=== PATIENT | male | born 1940 | race Caucasian/White ===

== ENCOUNTER 2017-04-10 09:26 | Outpatient (CLI) | payer MEDICARE ==
[~2017-04-10] VITALS: Ht 177.8 cm; Wt 118.2 kg
--- NOTE | ~2017-04-10 | OP ---
PATIENT NAME: LONNY SILVA MEDICAL RECORD: [id number] :42 LOCATION:D.CAT ADMISSION DATE: SURGEON: FRANCISCO SMITH MD DATE OF OPERATION: 04/10/2017 PROCEDURES: 1. Left heart catheterization. 2. Selective coronary angiography. 3. Left ventriculogram. 4. Attempted but failed PTCA stent of the left circumflex chronic total occlusion, inability to cross with wire. PROCEDURE IN DETAIL: After informed consent was obtained and after detailed explanation of risks, benefits as well as alternative therapies, the patient elected to proceed with angiogram and angioplasty. The right radial area is prepped and draped in normal sterile fashion. The right radial artery was cannulated via modified Seldinger technique with placement of 6-Togolese sheath. All catheters exchanged through this sheath. FINDINGS: The left ventriculogram was performed in standard 30-degree OCHOA view, reveals preserved cardiac wall motion, ejection fraction 50%. SELECTIVE CORONARY ANGIOGRAPHY: 1. Left main showed no significant angiographic disease. 2. Left anterior descending has mild irregularities, but no flow-limiting stenosis. 3. Left circumflex has previously placed stents in the second obtuse marginal area. These are chronically totally occluded. The first obtuse marginal was widely patent. 4. Right coronary has mild irregularities, but no flow-limiting stenosis. PTCA STENT OF THE LEFT CIRCUMFLEX: We attempted to cross the total occlusion of the previously placed stents, but no wire or balloon would cross this. 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 No disease elsewise. Continue medical management of the coronary artery disease and cardiac risk factors. TRANSINT:[id number] Voice Confirmation ID: [id number] DOCUMENT ID: [id number] FRANCISCO SMITH MD CC: [id number] DICTATION DATE: 04/10/17 1435 DIRECTOR OF MARKETING: 04/10/17 1754 DEP CLI 04/10/17 [address] [place] [address]
--- NOTE | ~2017-04-10 | HEMODYNAMI ---
PATIENT:LONNY SILVA MEDICAL RECORD: [id number] : 42 LOCATION:[facility] ADMISSION DATE: 04/10/17 Generatedon:04/10/201714:37 Patient name: LONNY SILVA Patient #: [id number] SSN: : 1940 Date of study: 04/10/2017 Page: Of Hemodynamic Procedure Report Patient Data Patient Demographics Procedure consent was obtained First Name: LONNY Gender: Male Last Name: SHIRA : 1940 [facility] Initial: JEANETH Age: 76 year(s) Patient #: [id number] Race: Unknown Additional ID: [id number] Contact details [address]: [address] [place] [address] State: [place] City: [place] Zip code: [address] Past Medical History Allergies: No known allergies Admission Admission Data Admission Date: 04/10/2017 Admission Time: 9:26 Lab Results Lab Result Date: 04/10/2017 Lab Result Time: 0:00 Biochemistry Name Units Result Min Max Creatinine mg/dl 1.6 --(----)-* 0.6 1.3 CBC Name Units Result Min Max Hemoglobin g/dl 13.6 --(*---)-- 13.5 17.5 Procedure Procedure Types Cath Procedure Diagnostic Procedure C [facility] w/Coronaries Miscellaneous Procedures Moderate Sedation up to 45 minutes Procedure Description Procedure Date Procedure Date: 04/10/2017 Procedure Start Time: 14:06 Procedure End Time: 14:36 Procedure Staff Name Function Salvador Parker MD Performing Physician Kairna Cervantes RT Scrub Zia Velez RN Nurse Vanessa Roque RT Monitor Procedure Data Cath Procedure Fluoroscopy Diagnostic fluoroscopy Total fluoroscopy Time: time: 13.1 min 13.1 min Diagnostic fluoroscopy Total fluoroscopy dose: dose: 2291 mGy 2291 mGy Contrast Material Contrast Material Type Amount (ml) Isovue 300 204 Entry Location Entry Primary Successful Side Size Upsize Upsize Entry Closure Riojas ccessful Closure Location (Fr) 1 (Fr) 2 (Fr) Remarks Device Remarks Radial Right 6 Fr Mechanical artery Short Compression Estimated blood loss: 10 ml Diagnostic catheters Device Type Used For End Catheter Placement Diagnostic Terumo 5Fr LV Angiography [place] 110cm catheter Diagnostic Terumo 5Fr Left Coronary [place] 110cm catheter Angiography Diagnostic Infinity 5Fr Right Coronary AR 2 MOD catheter Angiography Procedure Complications No complications Procedure Medications Medication Administration Route Dosage Oxygen NC 2 l/min Lidocaine 2% added to field 20 Heparin Flush Bag added to field 2 bags (1000units/500ml NS) 0.9% NaCl I.V. 100 ml/hr Versed I.V. 1 mg Fentanyl I.V. 50 mcg Versed I.V. 1 mg Fentanyl I.V. 50 mcg Fentanyl I.V. 50 mcg Radial Cocktail I.A. 1 syringe (Verapomil 2mg/Nitro 400mcg/Heparin 1500units) Fentanyl I.V. 50 mcg Heparin Bolus I.V. 5000 units Hemodynamics Rest HGB: 13.6 (g/dl) Heart Rate: 68 (bpm) Pressure Samples Time Site Value (mmHg) Purpose Heart Use Rate(bpm) 14:12 LV 111/38,55 Snapshot 84 Snapshots Pre Cath Intra NCS Post Cath Vital Signs Time Heart Resp SPO2 NIBP (mmHg) Rhythm Pain Sedation Rate (ipm) (%) Status Level (bpm) 13:14:21 70 15 99 130/75(108) NSR 0 (11) 10(A) , No pain 13:18:35 62 14 99 131/75(106) NSR 0 (11) 10(A) , No pain 13:22:51 81 14 98 128/72(110) NSR 0 (11) 10(A) , No pain 13:26:57 68 16 96 117/80(112) NSR 0 (11) 10(A) , No pain 13:31:07 65 17 95 137/74(115) NSR 0 (11) 10(A) , No pain 13:35:12 63 14 97 114/83(106) NSR 0 (11) 10(A) , No pain 13:40:22 63 16 98 106/71(90) NSR 0 (11) 10(A) , No pain 13:45:11 64 17 95 116/69(108) NSR 0 (11) 10(A) , No pain 13:49:20 65 18 96 114/72(97) NSR 0 (11) 10(A) , No pain 13:53:26 65 18 97 126/80(100) NSR 0 (11) 10(A) , No pain 13:57:38 65 16 97 123/79(105) NSR 0 (11) 10(A) , No pain 14:01:50 65 16 95 130/75(107) NSR 0 (11) 10(A) , No pain 14:05:58 66 14 97 102/74(93) NSR 0 (11) 9(A) , No pain 14:09:54 74 17 93 114/95(109) NSR 0 (11) 9(A) , No pain 14:14:53 71 16 95 106/72(99) NSR 0 (11) 9(A) , No pain 14:20:47 65 16 97 117/66(95) NSR 0 (11) 9(A) , No pain 14:24:59 61 19 94 124/65(100) NSR 0 (11) 10(A) , No pain 14:29:13 54 18 96 130/68(100) NSR 0 (11) 10(A) , No pain 14:33:29 60 16 96 125/73(99) NSR 0 (11) 10(A) , No pain Medications Time Medication Route Dose Verified Delivered Reason Note s Effectiveness by by 13:12:52 Oxygen NC 2 l/min Salvador Buffie used for Elena Velez RN procedure 13:12:59 Lidocaine 2% added 20ml Salvador Salvador for local to vial Elena Parker MD anesthetic field 13:13:04 Heparin Flush added 2 bags Salvadorashley Franco used for Bag to Elena Parker MD procedure (1000units/500ml field NS) 13:13:12 0.9% NaCl I.V. 100 Salvador Buffie Per physician ml/hr Elena Velez RN 13:55:31 Versed I.V. 1 mg Salvador Buffie for sedation Elena Velez RN 13:55:37 Fentanyl I.V. 50 mcg Salvador Buffie for sedation Elena Velez RN 14:02:23 Versed I.V. 1 mg Salvador Buffie for sedation Elena Velez RN 14:02:27 Fentanyl I.V. 50 mcg Salvador Lizarraga for sedation Elena Velez RN 14:07:00 Fentanyl I.V. 50 mcg Salvador Lizarraga for sedation Elena Velez RN 14:08:49 Radial Cocktail I.A. 1 Salvador kam (Verapomil syringe Elena Parker MD vasodilation 2mg/Nitro 400mcg/Heparin 1500units) 14:13:03 Fentanyl I.V. 50 mcg Salvador Lizarraga for sedation Elena Velez RN 14:21:40 Heparin Bolus I.V. 5000 Salvador Lizarraga for veri fied units Elena Velez RN anticoagulation with dr parker Procedure Log Time Note 13:02:27 Karina Billy RT(R) sent for patient. Start room use. 13:02:28 Time tracking: Regular hours 13:02:32 Plan of Care:Hemodynamics will remain stable., Cardiac rhythm will remain stable., Comfort level will be maintained., Respiratory function will remain adequate., Patient/ family verbilizes understanding of procedure., Procedure tolerated without complication., Recovers from procedure without complications.. 13:05:04 Patient received from Pre/Post Procedure Room to CCL 2 Alert and oriented. Tansferred to table in Supine position. 13:05:05 Warm blankets applied, and tien hugger turned on for patient comfort. 13:05:06 Correct patient and procedure confirmed by team. 13:05:07 Signed procedure consent form obtained from patient. 13:05:07 ECG and BP/O2 sat monitors applied to patient. 13:05:08 Full Disclosure recording started 13:12:52 Oxygen 2 l/min NC was administered by Zia Velez RN; used for procedure; 13:12:59 Lidocaine 2% 20ml vial added to field was administered by Salvador Parker MD; for local anesthetic; 13:13:04 Heparin Flush Bag (1000units/500ml NS) 2 bags added to field was administered by Salvador Parker MD; used for procedure; 13:13:12 0.9% NaCl 100 ml/hr I.V. was administered by Zia Velez RN; Per physician; 13:13:17 Vital chart was started 13:13:22 Rhythm: sinus bradycardia 13:17:29 Baseline sample Acquired. 13:17:49 H&P Date Dictated: 03/11/2017 Within 30 days and on chart., H&P Addendum completed by physician on day of procedure. (MUST COMPLETE FOR ALL OUTPATIENTS). 13:17:50 Pre-procedure instructions explained to patient. 13:17:50 Pre-op teaching completed and patient verbalized understanding. 13:17:52 Family in patients room. 13:17:53 Patient NPO since Midnight. 13:18:02 Patient allergic to No known allergies 13:18:05 Is the patient allergic to Iodine/contrast media? No. 13:18:07 Is patient on blood thinner?Yes 13:18:09 ACC The patient was administered the following blood thiners within the last 24 hours: ACCPlavix 13:18:11 Patient diabetic? Yes. 13:18:11 If diabetic: On Metformin? Yes 13:18:13 If on Metformin: Last Dose? 04/09/2017 13:18:17 Previous problem with sedation/anesthesia? No ? 13:18:17 Snore? Yes 13:18:18 Sleep apnea? No 13:18:19 Deviated septum? No 13:18:20 Opens mouth fully? Yes 13:18:20 Sticks out tongue? Yes 13:18:23 Airway obstruction? No ? 13:18:27 Dentures? Yes In 13:18:29 Pre procedure: right dorsailis pedis pulse 2+ Normal; easily identifiable; not easily obliterated 13:18:32 Modified Pérez's test Ulnar < 7 seconds 13:18:34 Patient pain scale 0/10 ?. 13:18:38 IV patent on arrival in left hand with 0.9% NaCl at KVO. 13:18:41 Lab results completed and on chart. 13:19:00 Lab Result : Creatinine 1.6 mg/dl 13:19:00 Lab Result : Hemoglobin 13.6 g/dl 13:19:07 Right Radial & Right Groin area was prepped with chlora-prep and draped in sterile fashion 13:19:08 Alarms reviewed by R. N. 13:19:08 Sharps counted by scrub and verified by R.N. 13:19:11 Use device set Radial Dx 13:19:12 Acist Syringe opened to sterile field. 13:19:13 Medline Cath Pack opened to sterile field. 13:19:13 Bag Decanter opened to sterile field. 13:19:16 Terumo 6Fr Slender Glidesheath opened to sterile field. 13:19:17 St Nilo 260cm J .035 wire opened to sterile field. 13:19:18 Acist Hand Control opened to sterile field. 13:19:18 Acist Manifold opened to sterile field. 13:19:19 Tegaderm 4 x 4 opened to sterile field. 13:19:19 MBrace Wrist Support opened to sterile field. 13:23:40 Zero performed for pressure channel P1 13:23:44 Zero performed for pressure channel P1 13:54:37 Final Timeout: patient, procedure, and site verified with staff and physician. All members of the team are in agreement. 13:54:39 Right Radial site verified by team. 13:54:43 Physical assessment completed. ASA score P 2 - A patient with mild systemic disease as per Salvador Parker MD. 13:54:48 Sedation plan: IV Moderate Sedation Versed, Fentanyl 13:55:31 Versed 1 mg I.V. was administered by Zia Velez RN; for sedation; 13:55:37 Fentanyl 50 mcg I.V. was administered by Zia Velez RN; for sedation; 14:02:23 Versed 1 mg I.V. was administered by Zia Velez RN; for sedation; 14:02:27 Fentanyl 50 mcg I.V. was administered by Zia Velez RN; for sedation; 14:06:49 Procedure started. 14:06:55 Local anesthetic to right radial artery with Lidocaine 2% by Salvador Parker MD.INITIAL ACCESS ONLY 14:07:00 Fentanyl 50 mcg I.V. was administered by Zia Velez RN; for sedation; 14:07:17 A 6 Fr Short sheath was inserted into the Right Radial artery 14:08:04 A Diagnostic Terumo 5Fr [place] 110cm catheter was advanced over the wire and used for LV Angiography. 14:08:49 Radial Cocktail (Verapomil 2mg/Nitro 400mcg/Heparin 1500units) 1 syringe I.A. was administered by Salvador Parker MD; for vasodilation; 14:09:46 LV gram done using OCHOA 14:10:02 Injector settings: Ml/sec: 5, Volume: 15, 14:12:15 EF : 50 % 14:12:24 A Diagnostic Terumo 5Fr [place] 110cm catheter was advanced over the wire and used for Left Coronary Angiography. 14:13:03 Fentanyl 50 mcg I.V. was administered by Zia Velez RN; for sedation; 14:13:20 [employer] BasixCompak Inflation Kit opened to sterile field. 14:13:21 William Whisper J 300cm 0.014 guide wire opened to sterile field. 14:13:46 Catheter removed. 14:13:51 A Diagnostic Infinity 5Fr AR 2 MOD catheter was advanced over the wire and used for Right Coronary Angiography. removed, unable to cannulate. 14:17:37 Medtronic Launcher 6Fr AR 1.0 guide catheter opened to sterile field. 14:17:44 6 Fr AR 1.0 guide catheter was inserted over the wire 14:18:47 RCA angiography performed. 14:18:53 Guide catheter removed. 14:21:13 Medtronic Launcher 6Fr EBU 4.0 guide catheter opened to sterile field. 14:21:28 6 Fr EBU 4.0 guide catheter was inserted over the wire 14:21:40 Heparin Bolus 5000 units I.V. was administered by Zia Velez RN; for anticoagulation; verified with dr parker 14:22:54 [place] Sci Choice PT Extra Support J 300cm .014 gu opened to sterile field. 14:24:10 Choice PT ES wire advanced. 14:27:26 Wire removed. damaged. 14:32:06 The [place] Sci Rich 1.5 X 20 balloon was advanced and then removed because of failure to cross lesion 14:32:17 Wire removed. unable to cross lesion. 14:32:33 Guide catheter removed. 14:32:47 Sheath removed intact; hemostasis achieved with Mechanical Compression to the Right Radial artery. 14:32:48 Procedure ended.(Physican Out) 14:32:59 Fluoroscopy time 13.10 minutes. 14:33:04 Fluoroscopy dose: 2291 mGy 14:33:04 Flurop Dose total: 2291 14:33:07 Contrast amount:Isovue 300 204ml. 14:33:08 Sharps counted by scrub and verified by R.N. 14:33:10 TR band inflated with 12cc of air. 14:33:12 Insertion/operative site no bleeding no hematoma. 14:33:19 Post right radial artery:stable, clean and dry 14:33:21 Post Procedure Pulses reassessed and unchanged 14:33:23 Post-procedure physical assessment completed. ASA score P 2 - A patient with mild systemic disease as per Salvador Parker MD. 14:33:25 Post procedure rhythm: unchanged. 14:33:28 Estimated blood loss: 10 ml 14:33:29 Post procedure instruction explained to patient.Patient verbalizes understanding. 14:33:29 Patient needs reinforcement of post procedure teaching. 14:34:36 Procedure type changed to Cath procedure, Diagnostic procedure, LHC, LHC w/Coronaries, Miscellaneous Procedures, Moderate Sedation up to 45 minutes 14:34:41 Procedure Complication : No complications 14:34:44 See physician's report for complete and final results. 14:35:37 Terumo TR Band Standard opened to sterile field. 14:36:08 [place] Sci Choice PT Extra Support J 300cm .014 gu opened to sterile field. 14:36:44 Procedure and supply charges have been captured, reviewed, submitted and are correct. 14:36:44 Vital chart was stopped 14:36:47 Report given to Pre/Post Procedure Room. 14:36:49 Patient transfered to Pre/Post Procedure Room with Stretcher. 14:36:58 Procedure ended. 14:36:58 Full Disclosure recording stopped 14:37:02 End room use (Document Last) Intervention Summary Intervention Notes Time ActionType Lesion and Equipment Action# Pressure Duration Attributes Used 14:32:06 Discard [place] Balloon Sci Rich 1.5 X 20 balloon Device Usage Item Name Manufacture Quantity Catalog Number Hospital Part Current Mini mal Lot# / Charge Number Stock Stock Serial# Code Acist Acist 1 24532 [id number] 148136 922279 20 Syringe Medical Systems Inc Medline Cardinal 1 [id number] 408629 65362 193443 5 Cath Pack Health Bag Microtek 1 2001S 804024 82880 181730 5 Decanter Medical Inc. Terumo 6Fr Terumo 1 [id number] 163775 068906 688614 [address] St Nilo 1 626878 545824 081881 778791 30 260cm J .035 wire Acist Hand Acist 1 74479 408027 171202 120582 5 Control Medical Systems Inc Acist Acist 1 04939 363272 583282 692396 5 Manifold Medical Systems Inc Tegaderm 4 3M 1 1626W 971256 848438 024049 5 x 4 MBrace Advanced 1 140-0250-00 079040 12901 018708 5 Wrist Vascular Support Dynamics Diagnostic Terumo 1 13-7378 666475 484671 745857 5 Terumo 5Fr [place] 110cm catheter Merit Merit 1 [id number] 953147 240956 210679 15 BasixCompak Medical Inflation Kit William William 1 [id number] 624746 520895 528499 5 Whisper J Vascular 300cm 0.014 guide wire Diagnostic Cardinal 1 [id number] 468158 495709 638035 20 [employer] 5Fr AR 2 MOD catheter Medtronic Medtronic 1 [id number] 903419 95028 649444 1 Launcher 6Fr AR 1.0 guide catheter Medtronic Medtronic 1 [id number] 096951 72440 333420 1 Launcher 6Fr EBU 4.0 guide catheter [place] Sci [place] 2 [id number] 022742 425516 226050 5 Choice PT Scientific Extra Support J 300cm .014 gu [place] Sci [place] 1 [id number] 016210 435453 338879 1 [id number] Femasys Scientific 1.5 X 20 balloon Terumo TR Terumo 1 [id number] 293038 746792 875470 40 Band Standard Signature Audit [place] Stage Time Signature Unsigned Intra-Procedure 04/10/2017 Vanessa 2:37:42 PM Counts RT(R) Signatures Monitor : Vanessa Signature : Counts RT Date : Time : [place] [facility] [address] [place] [address]
[~2017-04-10 09:26] MED LIST: APRESOLINE25 MG PO; BAYER CHEWABLE81 MG PO; BENICAR40 MG PO; LOPRESSOR50 MG PO; NORVASC10 MG PO; PLAVIX75 MG PO; ZOCOR20 MG PO
[2017-04-10] MEDS ORDERED: LIPITOR40 MG PO (10:21)
[2017-04-10] MEDS ORDERED: HCTZ25 MG PO (10:22)
[2017-04-10] MEDS ORDERED: COZAAR100 MG PO (10:23)
[2017-04-10 10:25] VITALS: BP 141/79; Ht 177.8 cm; Wt 118.2 kg
[2017-04-10 10:58] LABS: BASOPHILS 0.2 % (0-2); HEMATOCRIT 40.4 % (42.0-54.0); HEMOGLOBIN 13.6 g/dL (13.5-17.5); IMMATURE GRANULOCYTES 0.2 % (0-5); LYMPHOCYTES 24.9 % (15-50); MCH 29.7 pg (26.0-34.0); MCHC 33.7 g/dL (31.0-37.0); MCV 88.2 fL (80.0-100.0); MEAN PLATELET VOLUME 10.8 fL (7.4-10.4); MONOCYTES 11.4 % (2-11); NEUTROPHILS 61.3 % (40-80); PLATELET COUNT 189 10x3/uL (130-400); RBC 4.58 10x6/uL (4.20-6.10); RDW 13.3 % (11.5-14.5); WBC 6.1 10x3/uL (4.8-10.8)
[2017-04-10 11:09] LABS: ANION GAP 12.5 mmol/L (8-16); CALCIUM 8.7 mg/dL (8.5-10.1); CARBON DIOXIDE 24.8 mmol/L (21.0-32.0); CREATININE - SERUM 1.6 mg/dL (0.6-1.3); POTASSIUM - SERUM 4.3 mmol/L (3.5-5.1)
--- NOTE | 2017-04-10 14:45 | NUR ---
1445 RECEIVED PT FROM SALES AND MARKETING INTERN. PT DENIES ANY C/O. TR BAND TO RIGHT WRIST IS CDI, AREA IS FREE FROM BLEEDING OR HEMATOMA. AT BEDSIDE, CALL LIGHT IN REACH.
--- NOTE | 2017-04-10 15:00 | NUR ---
1500 DENIES ANY C/O. NO BLEEDIN GOR HEMATOMA AT CATH SITE, AT BEDSIDE. CALL LIGHT IN REACH. .
--- NOTE | 2017-04-10 15:30 | NUR ---
1530 PT HAS CARL SANDWICH WITH NO C/O. NO BLEEDING OR HEMATOMA NOTED AT CATH SITE. VSS, AT BEDSIDE.
--- NOTE | 2017-04-10 16:08 | NUR ---
1545 3 CC OF AIR REMOVED FROM TR BAND WITH NO BLEEDING OR HEMATOMA NOTED. PT DENIES ANY C/O AT THIS TIME.
--- NOTE | 2017-04-10 16:45 | NUR ---
1645 ALL AIR OUT OF TR BAND, NO BLEEDING OR HEMATOMA NOTED, PT DENIES ANY C/O. VSS, AT BEDSIDE.
--- NOTE | 2017-04-10 17:00 | NUR ---
IV HAS BEEN DC'D WITH CATH INTACT. PT DRESSING FOR DC. DC INSTRUCTIONS HAVE BEEN REVIEWED WITH PT AND WHO VERBALIZE UNDERSTANDING.
--- NOTE | 2017-04-10 17:23 | NUR ---
1715 PT HAS VOIDED QS. PT ESCORTED TO PRIVATE AUTO VIA WC BY NURSE WITH DRIVING HIM HOME.
== END 2017-04-10 17:15 | disposition home or self-care (01) ==
LOC: D.CATH 09:26
PROVIDERS: Internal Medicine Interventional Cardiology
DX: I25.119 Atherosclerotic heart disease of native coronary artery with unspecified angina pectoris (principal); E78.5 Hyperlipidemia, unspecified; I10 Essential (primary) hypertension; R94.30 Abnormal result of cardiovascular function study, unspecified; Z01.812 Encounter for preprocedural laboratory examination

== ENCOUNTER 2018-05-11 08:04 | Outpatient (CLI) | payer MEDICARE ==
[~2018-05-11] VITALS: Ht 177.8 cm; Wt 118.2 kg
--- NOTE | ~2018-05-11 | HEMODYNAMI ---
PATIENT:LONNY SILVA MEDICAL RECORD: [id number] : 42 LOCATION:[facility] ADMISSION DATE: 05/11/18 Generatedon:05/11/201810:25 Patient name: LONNY SILVA Patient #: [id number] SSN: : 1940 Date of study: 05/11/2018 Page: Of Hemodynamic Procedure Report Patient Data Patient Demographics Procedure consent was obtained First Name: LONNY Gender: Male Last Name: SHIRA : 1940 [facility] Initial: JEANETH Age: 77 year(s) Patient #: [id number] Race: Unknown Additional ID: [id number] Contact details Address: [address] [place] [address] State: [place] City: [place] Zip code: [address] Past Medical History Allergies: No known allergies Admission Admission Data Admission Date: 05/11/2018 Admission Time: 8:04 Admit Source: Other Lab Results Lab Result Date: 05/11/2018 Lab Result Time: 8:42 Biochemistry Name Units Result Min Max BUN mg/dl 19 --(----)*- 7 18 Creatinine mg/dl 1.5 --(----)-* 0.6 1.3 CBC Name Units Result Min Max Hematocrit % 38.9 *-(----)-- 42 54 Hemoglobin g/dl 13.1 -*(----)-- 13.5 17.5 Procedure Procedure Types Cath Procedure Diagnostic Procedure LHC LH w/Coronaries Sedation Charges Moderate Sedation up to 15 minutes Peripheral Cath Diagnostic Procedure Logistics Specialist Peripheral Procedures Miqno-Nmkahfz-Ngw-Off Procedure Description Procedure Date Procedure Date: 05/11/2018 Procedure Start Time: 10:09 Procedure End Time: 10:25 Procedure Staff Name Function Salvador Parker MD Performing Physician Duke Loja RT Monitor Vanessa Roque RT Scrub Zia Velez RN Nurse Regina Mendez RN Nurse Procedure Data Cath Procedure Fluoroscopy Diagnostic fluoroscopy Total fluoroscopy Time: 2.3 time: 2.3 min min Diagnostic fluoroscopy Total fluoroscopy dose: dose: 1174 mGy 1174 mGy Contrast Material Contrast Material Type Amount (ml) Isovue 300 109 Entry Location Entry Primary Successful Side Size Upsize Upsize Entry Closure Succes sful Closure Location (Fr) 1 (Fr) 2 (Fr) Remarks Device Remarks Femoral Left 5 Fr Exoseal artery Estimated blood loss: 5 ml Diagnostic catheters Device Type Used For End Catheter Placement MULTIPACK Pigtail 5 Fr Procedure catheter DIAGNOSTIC IMT 5Fr Procedure Catheter ([id number]) MULTIPACK JL 4.0 5Fr Procedure catheter MULTIPACK 3DRC 5Fr Procedure catheter Procedure Complications No complications Procedure Medications Medication Administration Route Dosage 0.9% NaCl I.V. 100 ml/hr Oxygen etCO2 Nasal cannula 2 l/min Lidocaine 2% added to field 20 Heparin Flush Bag added to field 2 bags (1000units/500ml NS) Versed I.V. 2 mg Fentanyl I.V. 100 mcg Versed I.V. 2 mg Fentanyl I.V. 100 mcg Hemodynamics Rest HGB: 13.1 (g/dl) Heart Rate: 63 (bpm) Pressure Samples Time Site Value (mmHg) Purpose Heart Use Rate(bpm) 10:10 LV 191/63,52 Snapshot 59 10:10 LV 146/33,40 Snapshot 67 Snapshots Pre Cath Intra NCS Post Cath Vital Signs Time Heart Resp SPO2 etCO2 NIBP (mmHg) Rhythm Pain Sedation Rate (ipm) (%) (mmHg) Status Level (bpm) 9:36:20 61 19 96 36 153/84(118) NSR 0 (11) 10(A) , No pain 9:40:51 49 16 98 31 140/76(113) NSR 0 (11) 10(A) , No pain 9:45:17 55 14 97 30.2 132/74(108) NSR 0 (11) 10(A) , No pain 9:49:39 58 18 96 32 125/79(105) NSR 0 (11) 10(A) , No pain 9:55:31 21 13 96 36.3 128/90(104) NSR 0 (11) 10(A) , No pain 9:59:54 61 14 96 33.2 135/78(102) NSR 0 (11) 10(A) , No pain 10:05:07 60 12 97 33.6 142/75(119) NSR 0 (11) 10(A) , No pain 10:09:25 56 17 97 31.8 134/87(107) NSR 0 (11) 9(A) , No pain 10:13:47 75 12 95 33 145/93(134) NSR 0 (11) 9(A) , No pain 10:19:11 59 13 97 46 146/82(112) NSR 0 (11) 10(A) , No pain 10:23:51 56 11 96 18.9 95/70(86) NSR 0 (11) 10(A) , No pain Medications Time Medication Route Dose Verified Delivered Reason Notes Eff ectiveness by by 9:31:13 0.9% NaCl I.V. 100 Salvador Regina used for ml/hr Elena Mendez behavioral services tech 9:31:20 Oxygen etCO2 2 Salvador Regina used for Nasal l/min Elena Mendez procedure cannula RN 9:31:25 Lidocaine 2% added 20ml Salvador Salvador for local to vial Elena Parker MD anesthetic field 9:31:30 Heparin Flush added 2 Salvador Salvador used for Bag to bags Elena Parker MD procedure (1000units/500ml field NS) 10:02:27 Versed I.V. 2 mg Salvador Regina for Elena Mendez sedation RN 10:02:34 Fentanyl I.V. 100 Salvador Regina for mcg Elena Mendez sedation RN 10:07:35 Versed I.V. 2 mg Salvador Regina for Elena Mendez sedation RN 10:07:41 Fentanyl I.V. 100 Salvador Regina for mcg Elena Mendez sedation commodity merchant Log Time Note 9:22:31 Informed consent obtained and on chart 9:22:34 Admit Source: Other 9:23:03 Diagnostic Cath status Elective 9:23:05 Zia Velez RN sent for patient. Start room use. 9:23:06 Time tracking: Regular hours (M-F 7:00 - 5:00) 9:23:09 Plan of Care:Hemodynamics will remain stable., Cardiac rhythm will remain stable., Comfort level will be maintained., Respiratory function will remain adequate., Patient/ family verbilizes understanding of procedure., Procedure tolerated without complication., Recovers from procedure without complications.. 9:23:19 H&P Date Dictated: 05/06/2018 Within 30 days and on chart., H&P Addendum completed by physician on day of procedure. (MUST COMPLETE FOR ALL OUTPATIENTS). 9::28 Lab Result : BUN 19 mg/dl :: Lab Result : Hemoglobin 13.1 g/dl 9:: Lab Result : Creatinine 1.5 mg/dl 9:: Lab Result : Hematocrit 38.9 % 9:: Lab results completed and on chart. 9:27:55 Patient received from Pre/Post Procedure Room to CCL 1 Alert and oriented. Tansferred to table in Supine position. 9::56 Warm blankets applied, and tien hugger turned on for patient comfort. 9::56 Correct patient and procedure confirmed by team. 9:27:57 ECG and BP/O2 sat monitors applied to patient. 9:27:58 Full Disclosure recording started 9:31:13 0.9% NaCl 100 ml/hr I.V. was administered by Regina Mendez RN; used for procedure; 9:31:20 Oxygen 2 l/min etCO2 Nasal cannula was administered by Regina Mendez RN; used for procedure; 9:31:25 Lidocaine 2% 20ml vial added to field was administered by Salvador Parker MD; for local anesthetic; 9:31:30 Heparin Flush Bag (1000units/500ml NS) 2 bags added to field was administered by Salvador Parker MD; used for procedure; 9:34:55 Vital chart was started 9:46:48 Baseline sample Acquired. 9:46:51 Rhythm: sinus rhythm 9:48:11 Pre-procedure instructions explained to patient. 9:48:12 Pre-op teaching completed and patient verbalized understanding. 9:48:13 Family in waiting room. 9:48:14 Patient NPO since Midnight. 9:50:01 Patient allergic to No known allergies 9:50:03 Is the patient allergic to Iodine/contrast media? No. 9:50:04 Is patient on blood thinner?Yes 9:50:07 ACC The patient was administered the following blood thiners within the last 24 hours: ACCPlavix 9:50:09 Patient diabetic? Yes. 9:50:09 If diabetic: On Metformin? No 9:50:12 Previous problem with sedation/anesthesia? No ? 9:50:13 Snore? Yes 9:50:14 Sleep apnea? No 9:50:14 Deviated septum? No 9:50:15 Opens mouth fully? Yes 9:50:15 Sticks out tongue? Yes 9:50:18 Airway obstruction? No ? 9:50:19 Dentures? No ? 9:50:30 Pre procedure: right dorsailis pedis pulse 1+ Palpable, but thready & weak; easily obliterated 9:50:34 Pre procedure: left dorsailis pedis pulse 1+ Palpable, but thready & weak; easily obliterated 9:51:01 Patient pain scale 0/10 ?. 9:51:06 IV patent on arrival in left hand with 0.9% NaCl at [facility]. 9:51:13 Bilateral groins area was prepped with chlora-prep and draped in sterile fashion 9:51:14 Alarms reviewed by R. N. 9:51:14 Sharps counted by scrub and verified by R.N. 9:51:18 Use device set Femoral Dx 9:51:19 ACIST Syringe ([id number]) opened to sterile field. 9:51:19 Bag Decanter (2002S) opened to sterile field. 9:51:21 ACIST Hand Control (33164) opened to sterile field. 9:51:21 ACIST Manifold (54714) opened to sterile field. 9:51:23 Tegaderm 4 x 4 (1626W) opened to sterile field. 9:51:25 Medline Cath Pack ([id number]) opened to sterile field. 9:51:27 DIAGNOSTIC Multipack 5Fr catheter set ([id number]) opened to sterile field. 9:51:28 SHEATH Prelude 5Fr 0.035 (TXS-3E-22-035) opened to sterile field. 9:51:29 DIAGNOSTIC WIRE .035 260cm J wire (926089) opened to sterile field. 9:52:48 Zero performed for pressure channel P1 10:02:01 Physician arrived 10:02:02 --------ALL STOP TIME OUT------ 10:02:02 Final Timeout: patient, procedure, and site verified with staff and physician. All members of the team are in agreement. 10:02:05 Bilateral groins site verified by team. 10:02:07 Physical assessment completed. ASA score P 2 - A patient with mild systemic disease as per Salvador Parker MD. 10:02:10 Sedation plan: IV Moderate Sedation Medication:Versed, Fentanyl 10:02:27 Versed 2 mg I.V. was administered by Regina Mendez RN; for sedation; 10::34 Fentanyl 100 mcg I.V. was administered by Regina Mendez RN; for sedation; 10::35 Versed 2 mg I.V. was administered by Regina Mendez RN; for sedation; 10::41 Fentanyl 100 mcg I.V. was administered by Regina Mendez RN; for sedation; 10::32 Procedure started. 10::35 Local anesthetic to left femerol artery with Lidocaine 2% by Salvador Parker MD.INITIAL ACCESS ONLY 10::43 A 5 Fr sheath was inserted into the Left Femoral artery 10:10:20 A MULTIPACK Pigtail 5 Fr catheter was advanced over the wire and used for Procedure. 10:11:00 LV gram done using OCHOA 10::02 Injector settings: Ml/sec: 10, Volume: 20, 10:11:04 LV hemodynamics recorded. 10:11:08 EF : 50 % 10:11:32 Abdominal angiogram w/ runoff was performed. 10:11:34 Left leg runoff performed. 10:11:35 Right leg runoff performed. 10:13:17 Catheter exchanged over wire. 10:13:33 GLIDE WIRE Angled Super Stiff 180cm ([id number]) opened to sterile field. 10:14:23 A DIAGNOSTIC IMT 5Fr Catheter ([id number]) was advanced over the wire and used for Procedure. 10:14:31 glide wire advanced around horn. 10:14:43 Wire removed. 10:14:52 Right leg runoff performed. 10:15:21 Catheter exchanged over wire. 10:15:29 A MULTIPACK JL 4.0 5Fr catheter was advanced over the wire and used for Procedure. 10:16:28 LCA angiography performed. 10:17:44 Catheter exchanged over wire. 10:18:10 A MULTIPACK 3DRC 5Fr catheter was advanced over the wire and used for Procedure. 10:18:14 RCA angiography performed. 10:18:36 Catheter removed. 10:18:41 EXOSEAL 5Fr (EX500) opened to sterile field. 10:19:02 Sheath removed intact; hemostasis achieved with Exoseal to the Left Femoral artery. 10:19:04 Procedure ended.(Physican Out) 10:22:45 Fluoroscopy time 02.30 minutes. 10::52 Fluoroscopy dose: 1174 mGy 10::52 Flurop Dose total: 1174 10:23:10 Contrast amount:Isovue 300 109ml. 10:23:14 Sharps counted by scrub and verified by R.N. 10:23:16 Insertion/operative site no bleeding no hematoma. 10:23:29 Post-op/insertion site Left Femoral artery dressed using a 4 x 4 and Tegaderm. 10:23:37 Post left femerol artery:stable, soft, clean and dry 10:23:59 Post Procedure Pulses reassessed and unchanged 10:24:01 Post-procedure physical assessment completed. ASA score P 2 - A patient with mild systemic disease as per Salvador Parker MD. 10:24:03 Post procedure rhythm: unchanged. 10:24:06 Estimated blood loss: 5 ml 10:24:08 Post procedure instruction explained to patient.Patient verbalizes understanding. 10:24:08 Patient needs reinforcement of post procedure teaching. 10:24:19 Procedure type changed to Cath procedure, Diagnostic procedure, LHC, LHC w/Coronaries, Sedation Charges, Moderate Sedation up to 15 minutes, Peripheral Cath Diagnostic Procedure, Logistics Specialist Peripheral Procedures, Okujp-Azamkug-Lga-Off 10:25:00 Procedure and supply charges have been captured, reviewed, submitted and are correct. 10:25:02 Procedure Complication : No complications 10:25:04 Vital chart was stopped 10:25:04 See physician's report for complete and final results. 10:25:05 Report given to Pre/Post Procedure Room. 10:25:08 Patient transfered to Pre/Post Procedure Room with Stretcher. 10:25:09 Procedure ended. 10:25:09 Full Disclosure recording stopped 10:25:13 End room use (Document Last) Device Usage Item Name Manufacture Quantity Catalog Number Hospital Part Current M inimal Lot# / Charge Number Stock Stock Serial# Code ACIST Syringe Acist 1 33594 [id number] 103285 706469 2 0 (18707) 8x[employer] Inc Inc Bag Decanter Microtek 1 065081 91247 773524 5 (2002S) Medical Inc. ACIST Hand Acist 1 84964 528654 535565 055782 5 Control (34725) Medical Systems Inc ACIST Manifold Acist 1 94454 231268 083882 527203 5 (03599) Medical Systems Inc Tegaderm 4 x 4 3M 1 1626W 166016 098192 853041 5 (1626W) Medline Cath Cardinal 1 [id number] 341141 19122 298441 5 Pack Health ([id number]) DIAGNOSTIC Cardinal 1 [id number] 791800 88580 013195 3 0 Multipack 5Fr Health catheter set ([id number]) SHEATH Prelude Merit 1 [id number]-3K-28-035 101010 848585 942936 5 5Fr 0.035 Medical (BFB-5L-53-035) DIAGNOSTIC WIRE [facility] Nilo 1 033394 683358 277000 804262 3 0 .035 260cm J wire (112624) MULTIPACK Cardinal 1 [id number] 5 Pigtail 5 Fr Health catheter GLIDE WIRE Terumo 1 LA4351 934761 248202 5 Angled Super Stiff 180cm ([id number]) DIAGNOSTIC IMT [place] 1 [id number] 528697 416747 42189 5 5Fr Catheter Scientific ([id number]) MULTIPACK JL Cardinal 1 994331 5 4.0 5Fr Health catheter EXOSEAL 5Fr Cardinal 1 EX500 984469 965673 843543 1 0 (EX500) Health MULTIPACK 3DRC Cardinal 1 [id number] 5 5Fr catheter Health Signature Audit Randall Stage Time Signature Unsigned Intra-Procedure 05/11/2018 Duke Loja 10:25:49 AM RT(R) Signatures Monitor : Duke Loja RT Signature : Date : Time : [place] [id number] [place] [address]
--- NOTE | ~2018-05-11 | OP ---
PATIENT NAME: LONNY SILVA MEDICAL RECORD: [id number] :42 LOCATION:D[facility] ADMISSION DATE: SURGEON: FRANCISCO SMITH MD DATE OF OPERATION: 05/11/2018 DATE OF SERVICE: 05/11/2018 PROCEDURES: 1. Left heart catheterization. 2. Selective coronary angiography. 3. Left ventriculogram. 4. Aortofemoral runoff. 5. Abdominal aortography. INDICATION: Claudication, angina, coronary artery disease, peripheral vascular disease. PROCEDURE IN DETAIL: After informed consent was obtained and after detailed explanation of risks, benefits as well as alternative therapies, the patient elected to proceed with angiogram and angioplasty. The left femoral area was prepped and draped in normal sterile fashion. Left femoral artery was cannulated via modified Seldinger technique with placement of 6-Malay sheath. All catheters exchanged through this sheath. FINDINGS: Left ventriculogram was performed in standard 30-degree OCHOA view, reveals good cardiac wall motion throughout all segments. Overall ejection fraction estimated at 50%. SELECTIVE CORONARY ANGIOGRAPHY: 1. Left main showed no significant angiographic disease. 2. Left anterior descending has moderate irregularities, but no flow-limiting stenosis. 3. The left circumflex has a total occlusion in the mid vessel. The distal circumflex fills via left to left collaterals, unchanged from previous angiography. 4. Right coronary has moderate irregularities, but no flow-limiting stenosis. Abdominal aortography was performed. The catheter was pulled down for aortofemoral runoff. Abdominal aortography reveals no significant abdominal aortic disease, no dissection or annulus formation. RIGHT LEG: A. Iliac: The common iliac and internal iliacs are widely patent. The external iliac is totally occluded. B. Femoral system: The proximal common femoral is totally occluded. It is an extension of the total occlusion of the external iliac. This reconstitutes at the superficial femoral artery via collateral network. Superficial femoral appears patent. Popliteal and infrapopliteal vessels appear patent. LEFT LEG: A. Iliac: The common internal and external iliacs have moderate irregularities, but no flow-limiting stenosis. B. Femoral system. The common superficial and deep femoral have moderate irregularities, but no flow-limiting stenosis. Popliteal and infrapopliteal vessels are widely patent with good 3-vessel runoff to the foot. OPERATIVE REPORT [id number] LONNY SILVA OVERALL IMPRESSION: 1. 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 2. 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 This is not amenable to transcatheter revascularization, would need aorto-fem surgery to be evaluated for revascularization of this. TRANSINT:[id number] Voice Confirmation ID: [id number] DOCUMENT ID: [id number] FRANCISCO SMITH MD at 0924 CC: [id number] DICTATION DATE: 05/11/18 1025 GIFTED TEACHER: 05/11/18 1203 DEP CLI 05/11/18 [facility] [place] [address] [place] [address]
[~2018-05-11 08:04] MED LIST changes: +COZAAR100 MG PO; +HCTZ25 MG PO; +LIPITOR40 MG PO
[2018-05-11] MEDS ORDERED: TOPROL XL25 MG PO (08:21)
[2018-05-11 08:43] VITALS: BP 148/72; Ht 177.8 cm; Wt 118.2 kg
[2018-05-11 08:45] LABS: BASOPHILS 0.3 % (0-2); EOSINOPHILS 2.7 % (0-7); HEMATOCRIT 38.9 % (42.0-54.0); HEMOGLOBIN 13.1 g/dL (13.5-17.5); IMMATURE GRANULOCYTES 0.3 % (0-5); LYMPHOCYTES 22.2 % (15-50); MCH 29.7 pg (26.0-34.0); MCHC 33.7 g/dL (31.0-37.0); MCV 88.2 fL (80.0-100.0); MEAN PLATELET VOLUME 11.2 fL (7.4-10.4); MONOCYTES 11.1 % (2-11); NEUTROPHILS 63.4 % (40-80); PLATELET COUNT 209 10x3/uL (130-400); RBC 4.41 10x6/uL (4.20-6.10); RDW 13.3 % (11.5-14.5); WBC 7.3 10x3/uL (4.8-10.8)
[2018-05-11 09:16] LABS: ANION GAP 15.1 mmol/L (8-16); CARBON DIOXIDE 25.4 mmol/L (21.0-32.0); CREATININE - SERUM 1.5 mg/dL (0.6-1.3); POTASSIUM - SERUM 4.5 mmol/L (3.5-5.1)
== END 2018-05-11 12:40 ==
LOC: D.CATH 08:04
PROVIDERS: Internal Medicine Interventional Cardiology
DX: I25.10 Atherosclerotic heart disease of native coronary artery without angina pectoris (principal); R06.00 Dyspnea, unspecified; I70.212 Atherosclerosis of native arteries of extremities with intermittent claudication, left leg

== ENCOUNTER → 2019-10-06 13:28 | Outpatient (CLI) | payer MEDICARE ==
[2018-05-11 08:43] VITALS: BMI 37.3
[~2019-10-06 13:28] MED LIST changes: +TOPROL XL25 MG PO
== END | disposition home or self-care (01) ==
LOC: D.HCCECHO 09-29 10:30
PROVIDERS: ATTEND Internal Medicine Interventional Cardiology
DX: I25.10 Atherosclerotic heart disease of native coronary artery without angina pectoris (principal)